=== PATIENT | female | born 1980 | race Caucasian/White ===

== ENCOUNTER → 2017-12-12 | Outpatient (CLI) | payer MEDICAID ==
[~2017-12-12] MED LIST: DOCU-131 PO; FERR325T18 PO; HYDR-3240 PO; IBUP-1222 PO; IBUP200T49 PO; OXYC5CAP2 PO; PREN1TAB60 PO
== END ==
LOC: STAR 07:50
PROVIDERS: ATTEND Specialist
DX: Z02.9 Encounter for administrative examinations, unspecified (principal)

== ENCOUNTER 2017-12-18 14:00 | Inpatient (IN) | payer MEDICAID ==
[~2017-12-18] VITALS: Ht 160 cm; Wt 81.0 kg
[~2017-12-18 14:00] MED LIST changes: -IBUP200T49 PO; -OXYC5CAP2 PO
[2017-12-19] MEDS ORDERED: ONDANSETRON 2MG/ML, 2ML ONE (11:05)
[2017-12-19] MEDS ORDERED: PROPOFOL 10 MG/ML, 20ML ONE (11:05)
[2017-12-19] MEDS ORDERED: LIDOCAINE-MPF 1%, 2ML ONE (12:08)
[2017-12-19] MEDS ORDERED: LACTATED RINGERS 1,000 ML IV SCH (12:08)
[2017-12-19 12:30] LABS: HCG UR SG 1.012 (1.003-1.030)
[2017-12-19] MEDS ORDERED: LIDOCAINE-MPF 1%, 2ML INFIL ONE (12:30)
[2017-12-19] MEDS ORDERED: MIDAZOLAM 1 MG/ML, 2ML ONE (14:03)
[2017-12-19] MEDS ORDERED: ONDANSETRON ODT 8 MG ONE (14:04)
[2017-12-19] MEDS ORDERED: GABAPENTIN 300 MG CAPSULE ONE (14:04)
[2017-12-19] MEDS ORDERED: SCOPOLAMINE PATCH, 1.5MG PATCH.TD72 TD ONE ×2 (14:05→15:00)
[2017-12-19] MEDS ORDERED: OxyconTIN ER 10 MG TAB.ER ONE (14:06)
[2017-12-19] MEDS ORDERED: DEXAMETHASONE 4 MG/ML, 1ML ONE ×2 (14:07→14:56)
[2017-12-19] MEDS ORDERED: ACETAMINOPHEN 500 MG TABLET ONE (14:07)
[2017-12-19] MEDS ORDERED: SUCCINYLCHOLINE 20 MG/ML, 10ML ONE (14:07)
[2017-12-19] MEDS ORDERED: FENTANYL PF 250 MCG/5ML ONE ×2 (14:07→15:03)
[2017-12-19] MEDS ORDERED: ROCURONIUM 10MG/ML,5ML ONE (14:07)
[2017-12-19] MEDS ORDERED: LIDOCAINE GEL 2%, 5ML ONE (14:08)
[2017-12-19] MEDS ORDERED: BUPIVACAINE/PF-EPI 0.25% 1:200K ONE (14:09)
[2017-12-19] MEDS ORDERED: FLUORESCEIN SODIUM 500 MG/5 ML ONE (14:09)
[2017-12-19] MEDS ORDERED: CEFAZOLIN 1,000 MG ONE ×2 (14:42→14:56)
[2017-12-19] MEDS ORDERED: KETOROLAC 30 MG/1 ML ONE ×2 (14:56)
[2017-12-19] MEDS ORDERED: LABETALOL 5MG/ML, 20ML IV PRN (15:00)
[2017-12-19] MEDS ORDERED: ALBUTEROL SULFATE 2.5 MG/3 ML NPPB PRN (15:00)
[2017-12-19] MEDS ORDERED: MEPERIDINE/PF 25MG/0.5ML IVPush PRN (15:00)
[2017-12-19] MEDS ORDERED: ONDANSETRON ODT 8 MG PO ONE (15:00)
[2017-12-19] MEDS ORDERED: ONDANSETRON 2MG/ML, 2ML IV PRN ×2 (15:00→21:00)
[2017-12-19] MEDS ORDERED: ONDANSETRON ODT 8 MG PO PRN (15:00)
[2017-12-19] MEDS ORDERED: ACETAMINOPHEN 500 MG TABLET PO ONE (15:00)
[2017-12-19] MEDS ORDERED: hydrALAzine 20 MG/ML, 1ML IV PRN (15:00)
[2017-12-19] MEDS ORDERED: OXYcodone 5 MG/5 ML ORAL.SOL UDC PO PRN (15:00)
[2017-12-19] MEDS ORDERED: OxyconTIN ER 10 MG TAB.ER PO ONE (15:00)
[2017-12-19] MEDS ORDERED: PROMETHAZINE 25 MG/ML, 1ML IV PRN (15:00)
[2017-12-19] MEDS ORDERED: MIDAZOLAM 1 MG/ML, 2ML IV PRN (15:00)
[2017-12-19] MEDS ORDERED: PROMETHAZINE 12.5 MG SUPP PR PRN (15:00)
[2017-12-19] MEDS ORDERED: GABAPENTIN 300 MG CAPSULE PO ONE (15:00)
[2017-12-19] MEDS ORDERED: ROPIvacaine/PF 0.2%, 20 ML ONE ×2 (15:50→15:52)
[2017-12-19] MEDS ORDERED: INDIGO CARMINE 0.8%, 5ML ONE (16:02)
[2017-12-19] MEDS ORDERED: GLYCOPYRROLATE 0.4 MG/2 ML, 2ML ONE (16:55)
[2017-12-19] MEDS ORDERED: NEOSTIGMINE 1 MG/ML, 10ML ONE (16:55)
[2017-12-19] MEDS ORDERED: PROMETHAZINE 25 MG/ML, 1ML ONE (18:16)
[2017-12-19] MEDS ORDERED: FENTANYL PF 100 MCG/2ML ONE (18:16)
[2017-12-19] MEDS ORDERED: HYDROmorphone 2 MG/ML, 1ML ONE (18:16)
[2017-12-19] MEDS: FENTANYL PF 100 MCG/2ML IV PRN ×3 (18:19→19:05)
[2017-12-19] MEDS ORDERED: OXYcodone 5 MG/5 ML ORAL.SOL UDC ONE (18:40)
[2017-12-19] MEDS ORDERED: OPIUM/BELLADONNA SUPP.RECT 16.2-30 MG ONE (18:40)
[2017-12-19] MEDS ORDERED: OPIUM/BELLADONNA SUPP.RECT 16.2-30 MG PR PRN (19:00)
[2017-12-19] MEDS: HYDROmorphone 2 MG/ML, 1ML IV PRN ×3 (19:15→19:35)
[2017-12-19] MEDS ORDERED: ZOLPIDEM 5MG TABLET PO PRN (21:00)
[2017-12-19] MEDS ORDERED: KETOROLAC 30 MG/1 ML IV PRN (21:00)
[2017-12-19] MEDS ORDERED: MEPERIDINE/PF 100 MG/ML IM PRN (21:00)
[2017-12-19] MEDS: SIMETHICONE 80 MG CHEW TAB PO SCH (21:54)
[2017-12-19] MEDS: POTASSIUM CHLORIDE 20 MEQ in D5%-LACTATED RINGERS 1,000 ML IV SCH (21:54)
[2017-12-19] MEDS ORDERED: CEFAZOLIN PMX 2GM/50ML 50 ML IVPB SCH (22:00)
[2017-12-19] MEDS: OXYcodone/APAP 5/325MG TABLET PO PRN (22:00)
[2017-12-20] MEDS ORDERED: OXYC5CAP2 PO (01:26)
[2017-12-20] MEDS ORDERED: IBUP200T49 PO (01:27)
[2017-12-20] MEDS: POTASSIUM CHLORIDE 20 MEQ in D5%-LACTATED RINGERS 1,000 ML IV SCH ×3 (01:39→20:52)
[2017-12-20 01:46] VITALS: BP 96/60
[2017-12-20] MEDS ORDERED: OXYcodone/APAP 7.5/325MG TABLET PO PRN (09:00)
[2017-12-20] MEDS: OXYcodone/APAP 5/325MG TABLET PO PRN (09:05)
[2017-12-20] MEDS: SIMETHICONE 80 MG CHEW TAB PO SCH ×3 (09:05→20:51)
[2017-12-20 09:21] LABS: BASOPHILS # (AUTO) 0.02 x10^3/uL (0-0.1); BASOPHILS % (AUTO) 0 % (0-1); EOSINOPHILS % (AUTO) 0 % (1-7); LYMPHOCYTES # (AUTO) 1.61 x10^3/uL (1-3.4); LYMPHOCYTES % (AUTO) 15 % (22-44); MD NO; MEAN CORPUSCULAR HEMOGLOBIN 20.9 pg (27.0-34.8); MEAN CORPUSCULAR HGB CONC 31.1 g/dL (32.4-35.8); MEAN CORPUSCULAR VOLUME 67.2 fL (80-100); MEAN PLATELET VOLUME 6.5 fL (7.4-10.4); MONOCYTES # (AUTO) 1.09 x10^3/uL (0.2-0.8); MONOCYTES % (AUTO) 10 % (2-9); NEUTROPHILS # (AUTO) 8.27 x10^3/uL (1.8-6.8); NEUTROPHILS % (AUTO) 75 % (42-75); PLATELET COUNT 382 x10^3/uL (130-400); RED CELL DISTRIBUTION WIDTH 17.8 % (9.6-15.2)
[2017-12-20 09:45] VITALS: BP 113/78
[2017-12-20] MEDS: OPIUM/BELLADONNA SUPP.RECT 16.2-30 MG PR PRN (10:47)
[2017-12-20] MEDS: CEFAZOLIN PMX 2GM/50ML 50 ML IVPB SCH ×2 (10:55→18:19)
[2017-12-20 12:25] VITALS: BP 110/94
[2017-12-20] MEDS: IBUPROFEN 200 MG TABLET PO SCH ×2 (13:33→20:51)
[2017-12-20 15:49] LABS: MEAN CORPUSCULAR HEMOGLOBIN 20.5 pg (27.0-34.8); MEAN CORPUSCULAR VOLUME 66.2 fL (80-100); MEAN PLATELET VOLUME 6.6 fL (7.4-10.4); PLATELET COUNT 322 x10^3/uL (130-400); RED BLOOD COUNT 3.33 x10^6/uL (3.82-5.3); RED CELL DISTRIBUTION WIDTH 17.2 % (9.6-15.2)
[2017-12-20 16:07] LABS: ANISOCYTOSIS 1+; BASOPHILS # (AUTO) 0.03 x10^3/uL (0-0.1); BASOPHILS % (AUTO) 0 % (0-1); EOSINOPHILS # (AUTO) 0.01 x10^3/uL (0-0.4); EOSINOPHILS % (AUTO) 0 % (1-7); LYMPHOCYTES # (AUTO) 1.51 x10^3/uL (1-3.4); LYMPHOCYTES % (AUTO) 16 % (22-44); MD MORPH REVIEW ONLY; MICROCYTOSIS 1+; MONOCYTES # (AUTO) 0.81 x10^3/uL (0.2-0.8); MONOCYTES % (AUTO) 9 % (2-9); NEUTROPHILS # (AUTO) 7.02 x10^3/uL (1.8-6.8); NEUTROPHILS % (AUTO) 75 % (42-75)
[2017-12-20 16:08] LABS: <PLATELET ESTIMATE> ADEQUATE; <PLT MORPHOLOGY> NORMAL PLT MORPH; HYPOCHROMIA 1+; OVALOCYTES 1+; POLYCHROMASIA 1+
[2017-12-20 16:09] VITALS: BP 106/66
[2017-12-20] MEDS: OXYcodone 5 MG/5 ML ORAL.SOL UDC PO PRN ×2 (18:19→22:38)
[2017-12-20 19:17] VITALS: BP 116/67
[2017-12-21] VITALS (7 sets, daily range): BP systolic 107–128; BP diastolic 66–85
[2017-12-21] MEDS: IBUPROFEN 200 MG TABLET PO SCH ×4 (02:50→21:23)
[2017-12-21] MEDS: OXYcodone 5 MG/5 ML ORAL.SOL UDC PO PRN (02:50)
[2017-12-21] MEDS: POTASSIUM CHLORIDE 20 MEQ in D5%-LACTATED RINGERS 1,000 ML IV SCH ×2 (02:50→21:23)
[2017-12-21] MEDS: CEFAZOLIN PMX 2GM/50ML 50 ML IVPB SCH ×2 (02:58→11:00)
[2017-12-21] MEDS: SIMETHICONE 80 MG CHEW TAB PO SCH ×3 (09:07→21:23)
[2017-12-21] MEDS ORDERED: IBUPROFEN 600 MG TABLET ONE (09:09)
[2017-12-21] MEDS: CEFUROXIME 250 MG TABLET PO SCH (22:14)
[2017-12-21] MEDS: OXYcodone/APAP 5/325MG TABLET PO PRN (23:22)
[2017-12-22] MEDS: OPIUM/BELLADONNA SUPP.RECT 16.2-30 MG PR PRN (00:16)
[2017-12-22] MEDS: OXYcodone/APAP 5/325MG TABLET PO PRN ×2 (00:24→09:17)
[2017-12-22 02:20] VITALS: BP 128/85
[2017-12-22] MEDS: IBUPROFEN 200 MG TABLET PO SCH ×2 (03:40→09:17)
[2017-12-22] MEDS: POTASSIUM CHLORIDE 20 MEQ in D5%-LACTATED RINGERS 1,000 ML IV SCH ×2 (03:41→07:04)
[2017-12-22 05:36] LABS: BASOPHILS # (AUTO) 0.04 x10^3/uL (0-0.1); BASOPHILS % (AUTO) 1 % (0-1); EOSINOPHILS # (AUTO) 0.23 x10^3/uL (0-0.4); EOSINOPHILS % (AUTO) 3 % (1-7); LYMPHOCYTES # (AUTO) 1.86 x10^3/uL (1-3.4); LYMPHOCYTES % (AUTO) 22 % (22-44); MD NO; MEAN CORPUSCULAR HGB CONC 31.1 g/dL (32.4-35.8); MEAN CORPUSCULAR VOLUME 70.6 fL (80-100); MEAN PLATELET VOLUME 7.5 fL (7.4-10.4); MONOCYTES # (AUTO) 0.95 x10^3/uL (0.2-0.8); MONOCYTES % (AUTO) 12 % (2-9); NEUTROPHILS % (AUTO) 63 % (42-75); PLATELET COUNT 294 x10^3/uL (130-400); RED BLOOD COUNT 3.89 x10^6/uL (3.82-5.3); RED CELL DISTRIBUTION WIDTH 21.7 % (9.6-15.2)
[2017-12-22 07:15] VITALS: BP 114/76
[2017-12-22] MEDS: CEFUROXIME 250 MG TABLET PO SCH (09:16)
[2017-12-22] MEDS: SIMETHICONE 80 MG CHEW TAB PO SCH (09:17)
[2017-12-25] MEDS ORDERED: IBUPROFEN 600 MG TABLET PO SCH (06:00)
== END 2017-12-22 12:30 | disposition home or self-care (01) | DRG 742 ==
LOC: ORIP 12-19 11:40 → EDSTATUS 12-19 14:00 → 4NOR 12-19 20:30
PROVIDERS: ADMIT Specialist; ATTEND Specialist
PROC: 0UT90ZZ Resection of Uterus, Open Approach (ICD-10-PCS; 2017-12-19)
PROC: 0DNW4ZZ Release Peritoneum, Percutaneous Endoscopic Approach (ICD-10-PCS; 2017-12-19)
PROC: 0TQB0ZZ Repair Bladder, Open Approach (ICD-10-PCS; principal; 2017-12-19 14:00)
PROC: 30233N1 Transfusion of Nonautologous Red Blood Cells into Peripheral Vein, Percutaneous Approach (ICD-10-PCS; 2017-12-21)
DX: N94.6 Dysmenorrhea, unspecified (principal); N99.72 Accidental puncture and laceration of a genitourinary system organ or structure during other procedure; G47.30 Sleep apnea, unspecified; N94.10 Unspecified dyspareunia; K66.0 Peritoneal adhesions (postprocedural) (postinfection); N32.89 Other specified disorders of bladder; Y83.8 Other surgical procedures as the cause of abnormal reaction of the patient, or of later complication, without mention of misadventure at the time of the procedure; Y92.234 Operating room of hospital as the place of occurrence of the external cause; Z82.49 Family history of ischemic heart disease and other diseases of the circulatory system; Z98.891 History of uterine scar from previous surgery; Z53.31 Laparoscopic surgical procedure converted to open procedure; Z88.5 Allergy status to narcotic agent; Z88.8 Allergy status to other drugs, medicaments and biological substances
CPT/HCPCS: 36415; 74018; J7121; 81025; 85014; 85018; 85025; 86850; 86900; 86923; 88305; J0690; J1100; J1170; J1885; J2250; J2405; J2550; J2704; J2710; J2795; J3010; J3480; J3490; Q0162; J0330; J7120; P9016

== ENCOUNTER 2017-12-28 20:13 | Emergency (ER) | payer MEDICAID ==
[~2017-12-28] VITALS: Ht 160 cm; Wt 75.0 kg
[~2017-12-28 20:13] MED LIST changes: +IBUP200T49 PO; +OXYC5CAP2 PO
[2017-12-28] MEDS ORDERED: CEFU250T66 PO (21:03)
[2017-12-28 21:19] LABS: MEAN CORPUSCULAR HEMOGLOBIN 22.8 pg (27.0-34.8); MEAN CORPUSCULAR HGB CONC 32.3 g/dL (32.4-35.8); MEAN CORPUSCULAR VOLUME 70.8 fL (80-100); MEAN PLATELET VOLUME 7.6 fL (7.4-10.4); PLATELET COUNT 355 x10^3/uL (130-400); RED BLOOD COUNT 4.84 x10^6/uL (3.82-5.3); RED CELL DISTRIBUTION WIDTH 24.2 % (9.6-15.2)
[2017-12-28 21:25] LABS: ALBUMIN 3.1 g/dL (3.4-5.0); ANION GAP 8 mmol/L (5-15); CALCIUM 8.9 mg/dL (8.5-10.1); CHLORIDE 109 mmol/L (98-107); CREATININE 1.14 mg/dL (0.55-1.02)
[2017-12-28 21:52] LABS: MD YES
[2017-12-28 21:56] LABS: EOS#(MANUAL) 0.33 x10^3/uL (0.0-0.4); EOS% (MANUAL) 3 % (1-7); LYMPH#(MANUAL) 3.05 x10^3/uL (1-3.4); LYMPHS% (MANUAL) 28 % (22-44); MONOS#(MANUAL) 0.87 x10^3/uL (0.3-2.7); MONOS% (MANUAL) 8 % (2-9); REACTIVE LYMPHS # (MANUAL) 0.11 x10^3/uL (0-0); REACTIVE LYMPHS % (MANUAL) 1 % (0-0); SEG#(MANUAL) 6.54 x10^3/uL (1.8-6.8); SEGS% (MANUAL) 60 % (42-75)
[2017-12-28 22:00] LABS: <PLATELET ESTIMATE> ADEQUATE; <PLT MORPHOLOGY> NORMAL PLT MORPH; ANISOCYTOSIS 1+; HYPOCHROMIA 1+; MICROCYTOSIS 1+; OVALOCYTES 1+; POLYCHROMASIA 1+
[2017-12-28] MEDS ORDERED: OPIUM/BELLADONNA SUPP.RECT 16.2-30 MG PR ONE (22:30)
[2017-12-28 22:45] LABS: CULTURE INDICATED? YES; MICROSCOPIC INDICATED
[2017-12-28 23:45] VITALS: BP 108/67
== END 2017-12-28 23:47 | disposition home or self-care (01) ==
LOC: ED 23:28
DX: R30.0 Dysuria (principal); Z46.82 Encounter for fitting and adjustment of non-vascular catheter
CPT/HCPCS: 36415; 51702; 80048; 81001; 82040; 85025; 87077; 87086; 87186; 99284

== ENCOUNTER → 2018-01-01 | Outpatient (CLI) | payer MEDICAID ==
[~2018-01-01] MED LIST changes: +CEFU250T66 PO; +CYSTO CONRAY II 250 ML VIAL UR ONE
== END | disposition home or self-care (01) ==
LOC: RAD 12:20
PROVIDERS: ATTEND Specialist
DX: Z48.816 Encounter for surgical aftercare following surgery on the genitourinary system (principal); R10.2 Pelvic and perineal pain
CPT/HCPCS: 74430; Q9958